=== PATIENT | female | born 1995 ===

== ENCOUNTER 2017-10-06 23:13 | Emergency (ER) | payer OTHER ==
[~2017-10-06] VITALS: Ht 165.1 cm; Wt 74.8 kg
[2017-10-07] MEDS ORDERED: Keflex500 MG PO (00:20)
[2017-10-07] MEDS ORDERED: Pyridium200 MG PO (00:20)
[2017-10-07 00:33] LABS: Source, Urine Clean Catch
[2017-10-07 00:35] LABS: Blood, Urine 5+ (Neg); Glucose Qualitative, Urine Neg (Neg); Ketones, Urine Neg (Neg); Leukocyte Esterase, Urine 2+ (Neg); Nitrite, Urine Pos (Neg); Protein, Urine 4+ (Neg); Specific Gravity, Urine 1.015 (1.003-1.022); Urobilinogen, Urine 2+ (Normal)
[2017-10-07 00:55] LABS: Appearance, Urine Cloudy (Clear); Bilirubin, Urine 2+ (Neg); Color, Urine Orange (P-Yellow)
[2017-10-07 00:56] LABS: Bacteria Many /hpf; Red Blood Cells, Urine 25-50 /hpf (0-2); Squamous Epithelial Cells Few /hpf (Few); White Blood Cells, Urine 25-50 /hpf (0-5)
[2017-10-25] MEDS ORDERED: Amoxicillin500 MG PO (23:40)
[2017-10-25] MEDS ORDERED: IBUP600 PO (23:40)
[2018-07-15] MEDS ORDERED: HYDHCL25 PO (21:32)
== END 2017-10-07 00:25 | disposition home or self-care (01) ==
LOC: ER 23:13
PROVIDERS: Physician Assistant
DX: N39.0 Urinary tract infection, site not specified (principal)
CPT/HCPCS: 81001; 81025; 87077; 87086; 87186; 99283

== ENCOUNTER 2017-10-25 | Emergency (ER) | END 2017-10-26 00:02 | disposition home or self-care (01) ==

== ENCOUNTER 2018-02-02 21:40 | Emergency (ER) | payer OTHER ==
[~2018-02-02] VITALS: Ht 165.1 cm; Wt 77.1 kg
[~2018-02-02 21:40] MED LIST: Amoxicillin500 MG PO; IBUP600 PO; Keflex500 MG PO; Pyridium200 MG PO
[2018-02-02] MEDS ORDERED: DIPH50 PO (21:47)
== END 2018-02-02 23:00 | disposition home or self-care (01) ==
LOC: ER 21:40
DX: H10.12 Acute atopic conjunctivitis, left eye (principal)
CPT/HCPCS: 99283

== ENCOUNTER 2018-04-04 15:31 | Emergency (ER) | payer OTHER ==
[~2018-04-04] VITALS: Ht 165.1 cm; Wt 79.4 kg
[~2018-04-04 15:31] MED LIST changes: +DIPH50 PO
[2018-04-04] MEDS ORDERED: BIRTH CONTROL PILLS (15:42)
== END 2018-04-04 16:09 | disposition home or self-care (01) ==
LOC: ER 15:31
DX: M79.5 Residual foreign body in soft tissue (principal)
CPT/HCPCS: 10120; 99282-25